=== PATIENT | female | born 2000 | race African-American/Black ===

== ENCOUNTER 2023-10-22 06:20 | Emergency (ER) | payer MEDICAID ==
[~2023-10-22] VITALS: Ht 172.7 cm; Wt 54.0 kg
[2023-10-22 06:30] VITALS: TEMP 98.4; O2SAT 100
[2023-10-22] MEDS: FLUORESCEIN SODIUM 1MG/STRIP RIGHTEYE ONE (08:30)
[2023-10-22] MEDS: TETRACAINE 0.5% OPHTH DROPS 4ML RIGHTEYE ONE (08:30)
[2023-10-22] MEDS: HYDROCODONE/ACETAMINOPHEN 5/325MG TABLET PO ONE (08:30)
[2023-10-22] MEDS ORDERED: HYDROCODONE/ACETAMINOPHEN 5/325MG TABLET PO PRN (08:30)
[2023-10-22 09:45] VITALS: BP 105/66; PULSE 68; RESP 18
[2023-10-22] MEDS: KETOROLAC 60MG/2ML VIAL IM ONE (09:45)
[2023-10-22] MEDS ORDERED: HYDR-4001 MT (09:45)
[2023-10-22] MEDS ORDERED: IBUP-2029 MT (09:45)
== END 2023-10-22 11:01 | disposition home or self-care (01) ==
LOC: ER 06:20
DX: H57.11 Ocular pain, right eye (principal)
CPT/HCPCS: 99285; 70486; 81025; 96372; J1885